=== PATIENT | female | born 1955 | race African-American/Black ===

== ENCOUNTER 2019-11-02 09:43 | Outpatient (CLI) | payer OTHER ==
--- NOTE | 2019-11-02 12:36 | Magnetic Resonance Report ---
MRI BRAIN WITHOUT CONTRAST INDICATION / CLINICAL INFORMATION: G30.0 Alzheimer's disease with early onset. TECHNIQUE: Multisequence, multiplanar images were obtained. COMPARISON: None available. FINDINGS: CEREBRAL and CEREBELLAR HEMISPHERES: No evidence of mass or mass effect. No midline shift. No acute hemorrhage. No diffusion restriction to suggest acute infarct. No extra-axial fluid collection. VENTRICLES: Normal in size and configuration for age. VISUALIZED ORBITS: No significant abnormality. VISUALIZED PARANASAL SINUSES: There is mild mucosal thickening in the left ethmoid air cells. The rem aining sinuses are clear. ADDITIONAL FINDINGS: None. IMPRESSION: Unremarkable MR brain without contrast. Signer Name: Morgan Sotomayor Jr, MD Signed: 11/02/2019 12:32 PM Workstation Name: [id number]
== END 2019-11-02 09:44 | disposition home or self-care (01) ==
LOC: MRI 09:43
PROVIDERS: ATTEND Psychiatry & Neurology Neurology
DX: G30.0 Alzheimer's disease with early onset (principal)
CPT/HCPCS: 70551